=== PATIENT | female | born 1955 | race Caucasian/White ===

== ENCOUNTER → 2023-12-25 13:41 | Outpatient (REF) | payer MEDICARE, OTHER, SELFPAY | LOC: RAD 13:41 | PROVIDERS: ATTENDING PHYSICIAN Nurse Practitioner Adult Health | DX: I87.2 Venous insufficiency (chronic) (peripheral) (principal); R60.0 Localized edema | CPT/HCPCS: 73610; 73630; 93970 ==

== ENCOUNTER → 2024-02-19 07:16 | Outpatient (REF) | payer MEDICARE, OTHER, SELFPAY ==
[2024-02-19 08:46] LABS: HDL Cholesterol 89 mg/dl; LDL Cholesterol, Calculated 115 mg/dl; Total Cholesterol 216 mg/dl (50-199); Triglyceride 61 mg/dl (10-149); Very Low Density Lipoprotein 12 mg/dl (0-30)
== END ==
LOC: RAD 07:16
PROVIDERS: ATTENDING PHYSICIAN Nurse Practitioner Adult Health
DX: E78.2 Mixed hyperlipidemia (principal); I70.209 Unspecified atherosclerosis of native arteries of extremities, unspecified extremity; Z82.49 Family history of ischemic heart disease and other diseases of the circulatory system
CPT/HCPCS: 36415; 75571; 80061

== ENCOUNTER → 2024-04-18 08:22 | Outpatient (REF) | payer MEDICARE, OTHER, SELFPAY | LOC: WDC 08:22 | PROVIDERS: ATTENDING PHYSICIAN Obstetrics & Gynecology Gynecologic Oncology; FAMILY PHYSICIAN Nurse Practitioner Adult Health | DX: Z12.31 Encounter for screening mammogram for malignant neoplasm of breast (principal) | CPT/HCPCS: 77063; 77067 ==

== ENCOUNTER → 2024-06-11 11:24 | Outpatient (REF) | payer MEDICARE, OTHER, SELFPAY | LOC: RAD 11:24 | PROVIDERS: ATTENDING PHYSICIAN Nurse Practitioner Adult Health; OTHER PHYSICIAN Internal Medicine Rheumatology | DX: M81.0 Age-related osteoporosis without current pathological fracture (principal); M54.50 Low back pain, unspecified | CPT/HCPCS: 72110 ==

== ENCOUNTER → 2024-06-24 13:20 | Outpatient (REF) | payer MEDICARE, OTHER, SELFPAY | LOC: RCS 13:20 | PROVIDERS: ATTENDING PHYSICIAN Internal Medicine Cardiovascular Disease; FAMILY PHYSICIAN Nurse Practitioner Adult Health | DX: R60.0 Localized edema (principal); I44.4 Left anterior fascicular block | CPT/HCPCS: 93306 ==

== ENCOUNTER → 2024-07-01 08:17 | Outpatient (REF) | payer MEDICARE, OTHER, SELFPAY | LOC: HWRAD 08:17 | PROVIDERS: ATTENDING PHYSICIAN Nurse Practitioner Adult Health; REFERRING PHYSICIAN Internal Medicine Rheumatology | DX: M81.0 Age-related osteoporosis without current pathological fracture (principal) | CPT/HCPCS: 77080 ==

== ENCOUNTER → 2024-09-11 07:54 | Outpatient (REF) | payer MEDICARE, OTHER, SELFPAY | LOC: WDC 07:54 | PROVIDERS: ATTENDING PHYSICIAN Nurse Practitioner Adult Health | DX: R92.30 Dense breasts, unspecified (principal); Z15.01 Genetic susceptibility to malignant neoplasm of breast; Z15.09 Genetic susceptibility to other malignant neoplasm | CPT/HCPCS: 76641 ==

== ENCOUNTER 2024-12-19 06:23 | Day surgery (SDC) | payer MEDICARE, OTHER, SELFPAY | END 2024-12-19 09:20 | disposition home or self-care (01) | LOC: GI 06:23 | PROVIDERS: ATTENDING PHYSICIAN Internal Medicine | DX: Z12.11 Encounter for screening for malignant neoplasm of colon (principal); K64.9 Unspecified hemorrhoids; K57.30 Diverticulosis of large intestine without perforation or abscess without bleeding; D12.2 Benign neoplasm of ascending colon; D12.5 Benign neoplasm of sigmoid colon; D12.7 Benign neoplasm of rectosigmoid junction; Z86.0101 Personal history of adenomatous and serrated colon polyps | CPT/HCPCS: 45385; 88305 ==

== ENCOUNTER → 2025-04-22 08:00 | Outpatient (REF) | payer MEDICARE, OTHER, SELFPAY | LOC: WDC 08:00 | PROVIDERS: ATTENDING PHYSICIAN Obstetrics & Gynecology Gynecologic Oncology; FAMILY PHYSICIAN Nurse Practitioner Adult Health | DX: Z12.31 Encounter for screening mammogram for malignant neoplasm of breast (principal) | CPT/HCPCS: 77063; 77067 ==